=== PATIENT | male | born 2000 | race Two or more races ===

== ENCOUNTER → 2025-03-23 00:29 | Outpatient (BNV) | payer MEDICAID, SELFPAY | PROVIDERS: Emergency Provider Emergency Medicine; Visit Provider Radiology Diagnostic Radiology | DX: S37.062A Major laceration of left kidney, initial encounter (principal); R07.89 Other chest pain | CPT/HCPCS: 71101; 74177 ==

== ENCOUNTER 2025-03-23 01:08 | Emergency (ER) | payer MEDICAID, SELFPAY ==
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
--- NOTE | ~2025-03-23 | XR_ITS ---
CLINICAL HISTORY: Trauma rib pain 4 view, chest and left ribs Comparison: None provided Findings: Bones intact. No dislocations. The lungs are unremarkable. IMPRESSION: 1. No acute fractures. This document has been electronically signed by: Narciso Sanchez MD on 03/23/2025 01:43:12
[2025-03-23 01:15] VITALS: BP 136/77; PULSE 90; RESP 16; TEMP 36.6; O2SAT 95; BMI 26.5
[2025-03-23 01:46] LABS: Appearance Urine Cloudy; Glucose Urine UA Negative (Negative); PH 6.0 (5.0-9.0); Specific Gravity - Urine 1.020 (1.005-1.025); UMIC TRIGGER UACC YES
[2025-03-23 01:47] LABS: UACC Culture Trigger YES
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
[2025-03-23] MEDS: Lactated Ringers 1,000 ML 999 ML IV (02:40)
--- NOTE | 2025-03-23 02:52 | PC.NURSE ---
20 G IV line established in L AC, patient medicated per OCT, awaiting CT of abdomen/pelvis. Patient is able to make his needs known, call [facility] within patient's reach.
[2025-03-23] MEDS: iohexoL 350 MG/ML 100 ML INFUS..BTL 85 ML IV (03:13)
[2025-03-23 04:18] LABS: MANUAL DIFF FLAG NO
[2025-03-23 04:19] LABS: Hematocrit 37.3 % (42.0-52.0); Hemoglobin 13.2 g/dl (14.0-18.0); Imm Gran Abs Auto 0.02 X10*3/uL (0.00-0.03); Imm Gran Pct Auto 0.3 % (0.0-0.4); Lymphocytes Absolute Auto 1.7 X10*3/uL (1.2-4.9); Mean Corpuscular HGB Conc 35.4 g/dl (31.0-36.0); Mean Corpuscular Hemoglobin 30.7 pg (27.0-33.0); Mean Corpuscular Volume 86.7 fL (80.0-98.0); NRBC Abs Auto 0.000 X10*3/uL (0.0-0.012); NRBC Pct Auto 0.0 /100WBC (0.0-0.2); Platelet Count 145 X10*3/uL (160-400); Red Blood Count 4.30 X10*6/uL (4.60-5.80); White Blood Count 7.8 X10*3/uL (4.8-10.8)
[2025-03-23 04:35] LABS: Albumin Level 4.2 g/dL (3.5-5.0); Alkaline Phosphatase 114 U/L (39-117); Anion Gap 13 (12-20); Aspartate Amino Transferase 35 U/L (5-37); Blood Urea Nitrogen 20 mg/dL (9-16); Calcium 8.6 mg/dL (8.4-10.2); Carbon Dioxide 25 mmol/L (22-29); Chloride 108 mmol/L (96-108); Creatinine Clr Calc Pharmacy 105.0; Estimated Glomerular Filt Rate > 60; Potassium 4.0 mmol/L (3.3-5.1); Sodium 142 mmol/L (135-145); Total Protein 7.2 g/dL (6.5-8.0)
[2025-03-23 04:47] LABS: Alanine Aminotransferase 31 U/L (0-40)
[2025-03-23 05:50] VITALS: BP 129/74; PULSE 68; RESP 18; TEMP 36.6; O2SAT 98
[2025-03-23 06:36] VITALS: BP 129/74; PULSE 68; RESP 18; TEMP 36.6; O2SAT 98
== END 2025-03-23 06:53 | disposition short-term general hospital (02) ==
PROVIDERS: Emergency Provider Emergency Medicine
DX: S37.052A Moderate laceration of left kidney, initial encounter (principal); S36.892A Contusion of other intra-abdominal organs, initial encounter; R07.89 Other chest pain; R31.9 Hematuria, unspecified; R10.2 Pelvic and perineal pain; R11.2 Nausea with vomiting, unspecified; Y93.61 Activity, american tackle football; Y92.321 Football field as the place of occurrence of the external cause; Y99.8 Other external cause status
CPT/HCPCS: 36415; 71101; 74177; 80053; 81001; 85025; 87086; 96361; 96374; 99284; 99285; J1885; J7120; Q9967